=== PATIENT | female | born 1985 | race Caucasian/White ===

== ENCOUNTER 2018-04-23 17:36 | Emergency (ER) | payer BC ==
--- NOTE | 2018-04-23 17:50 | EDM.PDOC ---
ED HPI GENERAL MEDICAL PROBLEM - General Chief Complaint: Eye Problems Stated Complaint: EYE PROBLEMS Time Seen by Provider: 04/23/18 17:49 - History of Present Illness INITIAL COMMENTS - FREE TEXT/NARRATIVE: 32-year-old female presents to the emergency room with eye discomfort. the eye discomfort began this morning. The patient wears contact lenses she was hiking in some blowing dust and she developed significant eye irritation. She does not recall if she got some in her eyes or if this sweat and sunscreen got into her eyes. Patient took out her contacts however the discomfort has not resolved. Patient has no significant history of shingles or herpetic infections. Bilateral Eye Pain Score (Numeric/FACES): 5 - Related Data Allergies Allergy/AdvReac Type Severity Reaction Status Date / Time cefdinir [From Omnicef] Allergy Vomiting Verified 04/23/18 17:46 metronidazole [From Flagyl] Allergy Vomiting Verified 04/23/18 17:46 wool Allergy Hives Verified 04/23/18 17:46 dairy Allergy Indigestion Uncoded 04/23/18 17:46 nickel Allergy Hives Uncoded 04/23/18 17:46 Home Meds: Home Meds LORazepam 1 mg PO BID PRN 04/23/18 [History] Sertraline [Zoloft] 100 mg PO DAILY 04/23/18 [History] Spironolactone [Aldactone] 100 mg PO DAILY 04/23/18 [History] busPIRone HCl [Buspirone HCl] 7.5 mg PO DAILY 04/23/18 [History] busPIRone HCl [Buspirone HCl] 12.5 mg PO DAILY 04/23/18 [History] ED ROS GENERAL - Review of Systems Review Of Systems: See Below Constitutional: Denies: Fever, Chills HEENT: Reports: Eye Pain. Denies: Dental Pain, Ear Pain, Sinus Problem, Throat Pain Respiratory: Reports: No Symptoms Cardiovascular: Reports: No Symptoms GI/Abdominal: Reports: No Symptoms ED EXAM GENERAL W FULL EYE - Physical Exam Exam: See Below Exam Limited By: No Limitations General Appearance: Alert, No Apparent Distress, Other (The patient had quite a bit of discomfort before putting proparacaine in her eyes) Eye Exam: Bilateral Eye: Conjunctival Injection (Right more so than left), EOMI , Foreign Body (None clearly identified), Normal Fundi, PERRL Eyelids: Bilateral: Erythema, Lid Everted for Exam Conjunctiva & Sclera: Bilateral: Injected Cornea Exam: Right: Corneal Abrasion (Very small and subtle), Bilateral: Examined with Flourescein Extraocular Movements: Bilateral: Intact Pupils: Normal Accommodation Pupillary Reaction: Bilateral: Brisk Anterior Chamber: Bilateral: Normal Appearance Posterior Chamber: Bilateral: Normal Funduscopic Respiratory/Chest: No Respiratory Distress, Lungs Clear, Normal Breath Sounds Cardiovascular: Regular Rate, Rhythm, No Edema, No Murmur Course - Vital Signs Last Recorded V/S: Last Vital Signs Temp 35.9 C 04/23/18 17:46 Pulse 97 04/23/18 17:46 Resp 16 04/23/18 17:46 BP 127/86 04/23/18 17:46 Pulse Ox 97 04/23/18 17:46 - Orders/Labs/Meds Orders: Active Orders 24 hr Category Date Time Status Eye Irrigation [RC] ASDIRECTED Care 04/23/18 19:42 Active Sodium Chloride 0.9% 1,000 ml Med 04/23/18 19:44 Active IRR ONETIME Medication Orders Sodium Chloride (Sodium Chloride 0.9%) 1,000 mls @ 999 mls/hr IRR ONETIME ONE Stop: 04/23/18 20:44 Last Admin: 04/23/18 19:35 Dose: 999 mls/hr Meds: Medications Generic Name Dose Route Start Last Admin Trade Name Freq PRN Reason Stop Dose Admin Sodium Chloride 1,000 mls @ 999 mls/hr 04/23/18 19:44 04/23/18 19:35 Sodium Chloride 0.9% IRR 04/23/18 20:44 999 mls/hr ONETIME ONE Administration Discontinued Medications Generic Name Dose Route Start Last Admin Trade Name Freq PRN Reason Stop Dose Admin Hydrocodone Bitart/Acetaminophen 1 tab 04/23/18 18:52 04/23/18 18:57 Paterson 325-5 Mg PO 04/23/18 18:53 1 tab ONETIME ONE Administration Erythromycin 1 gm 04/23/18 18:32 04/23/18 18:40 Erythromycin 0.5% Ophth Oint EYEBOTH 04/23/18 18:33 1 applic ONETIME ONE Administration Fluorescein Sodium 0.6 mg 04/23/18 18:38 04/23/18 18:41 Ful-Juliette EYEBOTH 04/23/18 18:39 0.6 mg ONETIME STA Administration Fluorescein Sodium/Benoxinate HCl 0 ml 04/23/18 17:57 04/23/18 18:39 Fluress Ophth Soln EYEBOTH 04/23/18 17:58 Not Given ONETIME ONE Ondansetron HCl 4 mg 04/23/18 19:44 04/23/18 19:48 Zofran Odt PO 04/23/18 19:45 4 mg ONETIME STA Administration Proparacaine HCl 0 ml 04/23/18 17:57 04/23/18 18:05 Proparacaine 0.5% Ophth Soln EYEBOTH 04/23/18 17:58 2 drop ONETIME ONE Administration - Re-Assessments/Exams Free Text/Narrative Re-Assessment/Exam: 04/23/18 18:41 Patient has bilateral irritation of her eyes. After examining cannot be certain she has significant corneal abrasions none seen on the left on the right side she has a very tiny subtle area that is consistent with the edge of a contact but is extremely shallow and with her having left-sided irritation as well as right I am wondering if the sunscreen and sweat played into this. The patient will be started on erythromycin ointment half inch each eye every few hours while awake she should be doing much better in the morning she should follow-up with her eye doctor on Wednesday or Wednesday for recheck she agrees to return to the emergency room with any questions or problems. Patient will be discharged with erythromycin ointment and some [place] 5/325 one or 2 every 6 hours as needed for the night 04/23/18 18:51 Patient had erythromycin ointment but nice and developed burning and irritation this was cleaned off we will not use it anymore with this patient. 04/23/18 19:40 Patient is thoroughly washed her face to make sure there is no debris interface the drip and arising causes irritation. She continued is to have the irritation. Case discussed with poison control and they have not heard of this type reaction from erythromycin ointment either. We did conclude that concerning Fabio lenses in both eyes and irrigating would be Most reasonable step. 04/23/18 20:12 Patient doing better after irrigation we'll observe a little longer prior to discharge 04/23/18 20:25 Patient continues to do well and would like to go Departure - Departure Time of Disposition: 18:43 Disposition: Home, Self-Care 01 Clinical Impression: Eye irritation, Corneal abrasion due to contact lens - Discharge Information Referrals: PCP,Not In Area [Primary Care Provider] - Forms: ED Department Discharge Additional Instructions: Patient given handwritten instructions because the printer is broken she hydrocodone 5 mg acetaminophen 325 mg #10. One or 2 every 6 hours as needed she will follow-up with her eye doctor on Wednesday. Return to the emergency room with any questions or problems. - My Orders Last 24 Hours: My Active Orders 04/23/18 19:42 Eye Irrigation [RC] ASDIRECTED 04/23/18 19:44 Sodium Chloride 0.9% 1,000 ml IRR ONETIME - Assessment/Plan Last 24 Hours: My Active Orders 04/23/18 19:42 Eye Irrigation [RC] ASDIRECTED 04/23/18 19:44 Sodium Chloride 0.9% 1,000 ml IRR ONETIME
[2018-04-23] MEDS ORDERED: Proparacaine 0.5% Ophth Soln 15 ML Bottle EYEBOTH ONE (17:57)
[2018-04-23] MEDS ORDERED: Benoxinate/Fluorescein 0.4-0.25% Ophth Soln 5 ML Bottle EYEBOTH ONE (17:57)
[2018-04-23] MEDS ORDERED: Erythromycin Base 0.5% Ophth Oint 1 GM Tube EYEBOTH ONE (18:32)
[2018-04-23] MEDS ORDERED: Fluorescein 0.6 MG Ophth Strip EYEBOTH STA (18:38)
[2018-04-23] MEDS ORDERED: Acetaminophen/HYDROcodone 325-5 MG Tab PO ONE (18:52)
[2018-04-23] MEDS ORDERED: Sodium Chloride 0.9% 1,000 ML IRR ONE (19:44)
[2018-04-23] MEDS ORDERED: Ondansetron 4 MG Tab.DIS PO STA (19:44)
== END 2018-04-23 20:30 | disposition home or self-care (01) ==
LOC: JD.ED 17:36
DX: H18.823 Corneal disorder due to contact lens, bilateral (principal); Z88.8 Allergy status to other drugs, medicaments and biological substances; Z79.899 Other long term (current) drug therapy; Z91.011 Allergy to milk products
CPT/HCPCS: 99283; A9270